=== PATIENT | female | born 1960 | race Caucasian/White ===

== ENCOUNTER → 2016-03-31 | Outpatient (CLI) | payer MEDICAID ==
--- NOTE | 2016-03-31 23:58 | MR ---
EXAMINATION TYPE: MR foot RT wo con DATE OF EXAM: 03/31/2016 7:41 PM COMPARISON: NONE HISTORY: Pain in right foot Standard multiplanar, multisequence MRI departmental protocol Multiplanar, multisequence images of the right foot were acquired. Diffusion weighted imaging was per formed. FINDINGS: There is some hypertrophic spurring at the first metatarsal head. There is metal artifact. There is spurring at the base of the first proximal phalanx. There is narrowing of the first MP joint space. I see no fracture. The Achilles tendon is intact. Plantar fascia is intact. The medial and la teral flexor tendons of the ankle are intact. There is minimal edema in the posterior malleolus on th e T2 images. There is a small ankle joint effusion. There is mild spurring of the posterior malleolus . There is no evidence of a fracture. The collateral ligaments of the ankle joint appear intact. IMPRESSION: There is metal artifact apparently from surgery on the first metatarsal head. 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 No acute fracture seen. Mild osteoarthritis in the ankle joint with small joint effusion.
== END | disposition home or self-care (01) ==
LOC: RADMRIMAIN 19:02
PROVIDERS: ATTEND Orthopaedic Surgery
DX: M19.071 Primary osteoarthritis, right ankle and foot (principal)

== ENCOUNTER → 2016-05-03 | Outpatient (CLI) | payer MEDICAID ==
--- NOTE | 2016-05-04 09:39 | MM ---
Reason for exam: clinical finding. Last mammogram was performed 3 years and 3 months ago. History: Patient is postmenopausal. Benign excisional biopsy of the left breast, 2011. Indicated problem(s): lump or thickening in the left breast. Physical Findings: Nurse Summary: 1 x 1cm nodule in the left breastat 12 o'clock/3 o'clock, 3 o'clock pinpoint palpable (nurse ts). MG 3D Diag Mammo W/Cad CONNOR Bilateral CC and MLO view(s) were taken. Prior study comparison: January 24, 2013, mammogram. January 16, 2012, mammogram. There are scattered fibroglandular densities. Left 12 o'clock and 3 o'clock palpable markers. Under the 12 o'clock marker there is a new small area of early oil cyst formation. Otherwise, no significant change. These results were verbally communicated with the patient and result sheet given to the patient on 05/03/16. ASSESSMENT: Incomplete: need additional imaging evaluation, BI-RAD 0 RECOMMENDATION: Ultrasound of the left breast. (targeted to 12 o'clock and 3 o'clock palpable sites)
--- NOTE | 2016-05-04 09:45 | USB ---
Reason for exam: additional evaluation requested from abnormal screening. History: Patient is postmenopausal. Benign excisional biopsy of the left breast, 2011. US Breast Limited LT Left breast ultrasound demonstrates a 4 x 4 x 3mm oval, hyperechoic, cystic lesion at palpable at 12 o'clock, total measurement of 9mm, likely correlated with the early oil cyst formation on mammogram, a 5 x 3 x 6mm oval, cystic lesion at 1 o'clock, benign and a 14 x 15mm irregular, hypoechoic lesion at 3 o'clock at scar/palpable. Scar tissue is suspected, but given the irregular features 3 month follow up is recommended. These results were verbally communicated with the patient and result sheet given to the patient on 05/03/16. ASSESSMENT: Probably benign, BI-RAD 3 RECOMMENDATION: Ultrasound of the left breast in 3 months.
== END | disposition home or self-care (01) ==
LOC: RADMAMWWP 14:01
PROVIDERS: ATTEND Family Medicine
DX: N63 Unspecified lump in breast (principal); R92.8 Other abnormal and inconclusive findings on diagnostic imaging of breast
CPT/HCPCS: 76642; G0204; G0279

== ENCOUNTER → 2016-08-09 | Outpatient (CLI) | payer MEDICAID, BC ==
--- NOTE | 2016-08-10 08:49 | USB ---
Reason for exam: follow-up at short interval from prior study. History: Patient is postmenopausal. Benign excisional biopsy of the left breast, 2011. Physical Findings: Nurse Summary: 0.5cm nodule in the right breast at 12 o'clock and a 0.5cm nodule in the right breast at 3 o'clock (nurse dw). US Breast LT Left breast ultrasound includes all four quadrants, the retroareolar region and axilla. Finding demonstrates a 7 x 6 x 9mm mixed area at 12 o'clock, a 17 x 8 x 12mm irregular, hypoechoic lesion at 2-3 o'clock with shadow at aspect of scar for which a biopsy is recommended and a 7 x 7 x 2mm oval, cystic lesion at 1 o'clock. These results were verbally communicated with the patient and result sheet given to the patient on 08/09/16. ASSESSMENT: Suspicious, BI-RAD 4 RECOMMENDATION: Ultrasound core biopsy of the left breast. Called Dr. Martinez with mammographic findings and has scheduled an appointment for the patient for 09/19/16 at 4:[address] Cordoba. Biopsy scheduled for 08/16/16 at 12:20. PRELIMINARY REPORT CALLED AND FAXED TO DR. CORDOBA ON 08/10/16 AT 300/TP.
== END | disposition home or self-care (01) ==
LOC: RADUSWWP 14:27
PROVIDERS: ATTEND Obstetrics & Gynecology
DX: R92.8 Other abnormal and inconclusive findings on diagnostic imaging of breast (principal); R92.2 Inconclusive mammogram

== ENCOUNTER → 2016-09-13 | Day surgery (SDC) | payer MEDICAID, BC ==
[2016-09-13 12:36] VITALS: RESP 16; TEMP 99.1; BMI 32.8
[2016-09-13 14:03] VITALS: BP 116/76; PULSE 71
--- NOTE | 2016-09-13 14:24 | USB ---
EXAMINATION TYPE: US biopsy breast VAD LT, Postbiopsy diagnostic mammo LT wo CAD DATE OF EXAM: 09/13/2016 CLINICAL HISTORY: 56-year-old female with palpable abnormality in the left breast referred for ultrasound-guided biopsy. TECHNIQUE: Ultrasound guided core biopsy of the left breast. COMPARISON: 08/09/2016 and 05/03/2016 FINDINGS: The procedure of ultrasound guided core biopsy was explained to the patient. Benefits, alternatives, and risks were discussed. An informed consent was then obtained. The patient was placed in supine positioning for imaging and for the procedure. The overlying skin was prepped and draped in usual sterile fashion. Lidocaine was used as anesthetic into the skin and subcutaneous tissue up to area of concern in the 2-3 o'clock deep left breast. Under ultrasound guidance, a 13-gauge vacuum-assisted Mammotome Elite biopsy gun was used to obtain 6 core samples. Following this, a coil clip was left in lesion. Postprocedure mammogram shows coil clip in place posteriorly at 3:00 but no clear mammographic correlate to the ultrasound lesion. The patient tolerated the procedure well without any immediate complication. The patient was kept in the radiology department for short stay after the procedure and then discharged home in stable condition. IMPRESSION: Successful, uncomplicated ultrasound guided core biopsy of area of concern in the 3:00 left breast, scar tissue versus a suspicious lesion. Full pathology results to follow. Pathology Results: Benign BREAST, LEFT, ULTRASOUND GUIDED CORE BIOPSY: FIBROCYSTIC CHANGE (STROMAL FIBROSIS, CYST FORMATION, APOCRINE METAPLASIA. DUCT ECTASIA AND DUCT HYPERPLASIA ). Recommendation Follow up ultrasound of the left breast in 6 months. FANTASMA
== END ==
LOC: RADUSWWP 12:15
PROVIDERS: ATTEND Surgery
DX: N60.32 Fibrosclerosis of left breast (principal); R92.8 Other abnormal and inconclusive findings on diagnostic imaging of breast; N60.82 Other benign mammary dysplasias of left breast; N60.42 Mammary duct ectasia of left breast; N60.92 Unspecified benign mammary dysplasia of left breast; N64.89 Other specified disorders of breast; Z88.0 Allergy status to penicillin
CPT/HCPCS: 88305; 19083; G0206; A4648; J2001

== ENCOUNTER → 2017-06-27 | Outpatient (CLI) | payer MEDICAID ==
[2017-06-27 16:23] LABS: Rheumatoid Factor 5 IU/mL (0-15)
[2017-06-27 17:13] LABS: Shrimp IgE <0.10 kU/L
[2017-06-28 12:16] LABS: ANA Pattern Speckled
[2017-06-28 13:41] LABS: Lettuce IgE Class CLASS 0
[2017-06-28 13:44] LABS: Salmon IgE <0.35 kU/L (<0.35); Salmon IgE Class CLASS 0
[2017-06-28 13:46] LABS: Apple IgE Class CLASS 0; Onion IgE <0.35 kU/L (<0.35); Onion IgE Class CLASS 0; Yeast Bakers/Brew IgE <0.35 kU/L (<0.35)
[2017-06-28 13:47] LABS: Celery IgE <0.35 kU/L (<0.35); Celery IgE Class CLASS 0; Chicken IgE Class CLASS 0
[2017-06-28 13:48] LABS: Chocolate IgE Class CLASS 0; Cow's Milk IgE Class CLASS 0; Egg White IgE <0.35 kU/L (<0.35); Latex IgE Class CLASS 0; Peanut IgE <0.35 kU/L (<0.35); Potato IgE <0.35 kU/L (<0.35); Potato IgE Class CLASS 0; Soybean IgE <0.35 kU/L (<0.35)
[2017-06-28 13:49] LABS: Avocado Class CLASS 0; Banana IgE Class CLASS 0; Hazelnut IgE <0.35 kU/L (<0.35); Hazelnut IgE Class CLASS 0; Kiwi IgE <0.35 kU/L (<0.35); Tea IgE <0.35 kU/L (<0.35)
== END | disposition home or self-care (01) ==
LOC: LABWHC1 09:20
PROVIDERS: ATTEND Otolaryngology
DX: R53.83 Other fatigue (principal); K14.0 Glossitis; J30.89 Other allergic rhinitis
CPT/HCPCS: 36415; 82607; 84207; 85652; 86003; 86038; 86039; 86431

== ENCOUNTER → 2017-10-01 | Outpatient (CLI) | payer MEDICAID ==
--- NOTE | 2017-10-03 13:08 | MM ---
Reason for exam: additional evaluation requested from prior study. Last mammogram was performed 1 year and 1 month ago. History: Patient is postmenopausal. Benign US biopsy breast VAD LT of the left breast, September 13, 2016. Benign excisional biopsy of the left breast, 2011. Physical Findings: Nurse did not find any significant physical abnormalities on exam. MG 3D Diag Mammo W/Cad CONNOR Bilateral CC and MLO view(s) were taken. Prior study comparison: September 13, 2016, left breast MG diagnostic mammo LT wo CAD. May 03, 2016, bilateral MG 3d diag mammo w/cad CONNOR. There are scattered fibroglandular densities. Previous mammotome biopsy in the left breast. There is chronic nodularity bilaterally. There is no discrete abnormality. These results were verbally communicated with the patient and result sheet given to the patient on 10/01/17. ASSESSMENT: Benign, BI-RAD 2 RECOMMENDATION: Routine screening mammogram of both breasts in 1 year.
--- NOTE | 2017-10-03 13:09 | USB ---
Reason for exam: additional evaluation requested from prior study. History: Patient is postmenopausal. Benign US biopsy breast VAD LT of the left breast, September 13, 2016. Benign excisional biopsy of the left breast, 2011. US Breast LT Left complete breast ultrasound includes all four quadrants, the retroareolar region and axilla. Finding demonstrates no cystic or solid lesion seen. These results were verbally communicated with the patient and result sheet given to the patient on 10/01/17. ASSESSMENT: Negative, BI-RAD 1 RECOMMENDATION: Routine screening mammogram of both breasts in 1 year.
== END | disposition home or self-care (01) ==
LOC: RADMAMWWP 09:31
PROVIDERS: ATTEND Obstetrics & Gynecology
DX: R92.8 Other abnormal and inconclusive findings on diagnostic imaging of breast (principal)
CPT/HCPCS: 77062; 77066

== ENCOUNTER → 2018-04-05 | Outpatient (CLI) | payer MEDICAID, BC ==
--- NOTE | 2018-04-05 14:59 | XR ---
EXAMINATION TYPE: XR chest 2V DATE OF EXAM: 04/05/2018 COMPARISON: NONE HISTORY: Chest discomfort. TECHNIQUE: Frontal and lateral views of the chest are obtained. FINDINGS: There is no focal air space opacity, pleural effusion, or pneumothorax seen. The cardiac silhouette size is within normal limits. The osseous structures are intact. IMPRESSION: No acute cardiopulmonary process.
--- NOTE | 2018-04-06 08:42 | ECHOF ---
Referral Reason:R07.9, R94.31 MEASUREMENTS -------- HEIGHT: 167.6 cm WEIGHT: 86.2 kg BP: IVSd: 1.1 cm (0.6 - 1.1) LVIDd: 3.8 cm (3.9 - 5.3) LVPWd: 1.2 cm (0.6 - 1.1) IVSs: 1.4 cm LVIDs: 3.1 cm LVPWs: 1.3 cm RVIDd: 2.8 cm (< 3.3) LAESV Index (A-L): 17.03 ml/m Ao Diam: 3.0 cm (2.0 - 3.7) LA Diam: 2.9 cm (2.7 - 3.8) AV Cusp: 1.8 cm (1.5 - 2.6) EPSS: 0.5 cm MV E Laz: 0.72 m/s MV DecT: 275 ms MV A Laz: 0.76 m/s MV E/A Ratio: 0.95 RAP: 5.00 mmHg RVSP: 30.00 mmHg MV EF SLOPE: 81.33 mm/s (70 - 150) MV EXCURSION: 13.54 mm (> 18.000) FINDINGS -------- Sinus rhythm. This was a technically adequate study. The left ventricular size is normal. There is mild concentric left ventricular hypertrophy. Overa ll left ventricular systolic function is normal with, an EF between 55 - 60 %. The right ventricle is normal in size and function. Normal LA size by volume 22+/-6 ml/m2. The right atrium is normal in size. The aortic valve is trileaflet, and appears structurally normal. No aortic stenosis or regurgitation. The mitral valve leaflets are mildly thickened. There is trace to mild mitral regurgitation. Mild tricuspid regurgitation present. Right ventricular systolic pressure is normal at < 35 mmHg. There is no evidence of pulmonary hypertension. The pulmonic valve was not well visualized. The aortic root size is normal. Normal inferior vena cava with normal inspiratory collapse consistent with estimated right atrial pre ssure of 5 mmHg. There is no pericardial effusion. CONCLUSIONS -------- 1. Sinus rhythm. 2. This was a technically adequate study. 3. The left ventricular size is normal. 4. There is mild concentric left ventricular hypertrophy. 5. Overall left ventricular systolic function is normal with, an EF between 55 - 60 %. 6. Normal LA size by volume 22+/-6 ml/m2. 7. The aortic valve is trileaflet, and appears structurally normal. No aortic stenosis or regurgitati on. 8. The mitral valve leaflets are mildly thickened. 9. There is trace to mild mitral regurgitation. 10. Mild tricuspid regurgitation present. 11. Right ventricular systolic pressure is normal at < 35 mmHg. 12. There is no evidence of pulmonary hypertension. 13. The pulmonic valve was not well visualized. 14. The aortic root size is normal. 15. There is no pericardial effusion. CHANNEL REBUILDER: Jones Neil RDCS
--- NOTE | 2018-04-06 08:52 | XR ---
EXAMINATION TYPE: XR hand complete RT DATE OF EXAM: 04/05/2018 CLINICAL HISTORY: Chronic right hand pain. TECHNIQUE: Frontal, lateral and oblique images of the right hand are obtained. COMPARISON: None. FINDINGS: There is no acute fracture/dislocation evident in the right hand. Mild to moderate degener ative change throughout the phalanges with narrowing of PIP and the DIP joints is present. There is r elative sparing of the MCP joints. No significant spurring is seen. Mild diffuse soft tissue swelling throughout the phalanges is noted. IMPRESSION: As above.
== END | disposition home or self-care (01) ==
LOC: RADECHMAIN 13:28
PROVIDERS: ATTEND Family Medicine
DX: I08.1 Rheumatic disorders of both mitral and tricuspid valves (principal); R07.9 Chest pain, unspecified; R76.8 Other specified abnormal immunological findings in serum; I20.9 Angina pectoris, unspecified; R22.0 Localized swelling, mass and lump, head; M25.841 Other specified joint disorders, right hand
CPT/HCPCS: 71046; 93306

== ENCOUNTER → 2018-04-05 | Outpatient (CLI) | payer MEDICAID, BC ==
[2018-04-05 16:20] LABS: Appearance,Urine Cloudy (Clear); Bilirubin,Urine Negative (Negative); Blood,Urine Negative (Negative); Color,Urine Light Yellow; Glucose,Urine (UA) Negative (Negative); Ketones,Urine Negative (Negative); Leukocyte Esterase,Urine Large (Negative); Mucus,Urine Rare /hpf; Nitrite,Urine Negative (Negative); Protein,Urine Negative (Negative); RBC,Urine 8 /hpf (0-5); Squamous Epithelial Cell,Urine 7 /hpf (0-4); Urobilinogen,Urine <2.0 mg/dL (<2.0); WBC,Urine 95 /hpf (0-5)
[2018-04-05 22:56] LABS: Rheumatoid Factor 9 IU/mL (0-15)
[2018-04-05 23:26] LABS: Cardiolipin Ab IgG Interp NEGATIVE (NEGATIVE); Cyclic Citrullinated Pep IgG NEGATIVE (NEGATIVE); Hepatitis C IgG Antibody Non-Reactive (Non-Reactive)
[2018-04-09 12:16] LABS: Histone Antibody 1.2 UNITS (<1.0)
== END | disposition home or self-care (01) ==
LOC: LABWHC1 15:01
PROVIDERS: ATTEND Internal Medicine Rheumatology
DX: M35.00 Sjogren syndrome, unspecified (principal); L56.8 Other specified acute skin changes due to ultraviolet radiation; M19.049 Primary osteoarthritis, unspecified hand; L65.9 Nonscarring hair loss, unspecified; R76.8 Other specified abnormal immunological findings in serum
CPT/HCPCS: 36415; 81001; 83516; 85652; 86140; 86146; 86147; 86160; 86200; 86235; 86431; 86803

== ENCOUNTER → 2019-02-07 | Outpatient (CLI) | payer MEDICAID, BC ==
--- NOTE | 2019-02-07 14:56 | USB ---
Reason for exam: clinical finding. History: Patient is postmenopausal. Benign US biopsy breast VAD LT of the left breast, September 13, 2016. Benign excisional biopsy of the left breast, 2011. US Breast LT Technologist: Angely Goodwin Left complete breast ultrasound includes all four quadrants, the retroareolar region and axilla. Finding demonstrates no cystic or solid lesion seen. No suspicious sonographic finding. These results were verbally communicated with the patient and result sheet given to the patient on 02/07/19. ASSESSMENT: Negative, BI-RAD 1 RECOMMENDATION: Routine screening mammogram of both breasts in 1 year. Manage patient on a clinical basis.
--- NOTE | 2019-02-07 14:56 | MM ---
Reason for exam: clinical finding. Last mammogram was performed 1 year and 4 months ago. History: Patient is postmenopausal. Benign US biopsy breast VAD LT of the left breast, September 13, 2016. Benign excisional biopsy of the left breast, 2011. Indicated problem(s): lump or thickening in the left breast. Physical Findings: Nurse did not find any significant physical abnormalities on exam. MG 3D Diag Mammo W/Cad CONNOR Bilateral CC and MLO view(s) were taken. Prior study comparison: October 01, 2017, bilateral MG 3d diag mammo w/cad CONNOR. September 13, 2016, left breast MG diagnostic mammo LT wo CAD. There are scattered fibroglandular densities. No suspicious abnormality. Left biopsy marker noted. These results were verbally communicated with the patient and result sheet given to the patient on 02/07/19. ASSESSMENT: Incomplete: need additional imaging evaluation, BI-RAD 0 RECOMMENDATION: Ultrasound of the left breast. (palpable per patient)
== END | disposition home or self-care (01) ==
LOC: RADMAMWWP 13:23
PROVIDERS: ATTEND Obstetrics & Gynecology
DX: N63.10 Unspecified lump in the right breast, unspecified quadrant (principal); N63.20 Unspecified lump in the left breast, unspecified quadrant; R92.8 Other abnormal and inconclusive findings on diagnostic imaging of breast
CPT/HCPCS: 77062; 77066

== ENCOUNTER → 2019-02-14 | Outpatient (CLI) | payer MEDICAID, BC ==
--- NOTE | 2019-02-14 15:18 | XR ---
EXAMINATION TYPE: XR Hip Bilateral and AP pelvis DATE OF EXAM: 02/14/2019 COMPARISON: None HISTORY: Left hip pain TECHNIQUE: Bilateral shoulder examined in 2 projections each. FINDINGS: Bilateral hips articulate with the acetabulum. Joint spaces are preserved. No acute fractur es or dislocations are evident. Symphysis pubis and sacroiliac joints appear normal. IMPRESSION: 1. Normal bilateral hips.
== END | disposition home or self-care (01) ==
LOC: RADXRMAIN 12:53
PROVIDERS: ATTEND Family Medicine
DX: M25.559 Pain in unspecified hip (principal); M54.5 Low back pain
CPT/HCPCS: 73521

== ENCOUNTER → 2019-02-17 | Outpatient (CLI) | payer MEDICAID, BC ==
--- NOTE | 2019-02-17 08:44 | CT ---
EXAMINATION TYPE: CT abdomen pelvis wo con DATE OF EXAM: 02/17/2019 COMPARISON: None HISTORY: LLQ pain, diarrhea CT DLP: 1109 mGycm Examination of the solid and hollow viscera is limited given the lack of contrast. FINDINGS: LUNG BASES: No evidence for nodule. No evidence for infiltrate. LIVER/GB: The gallbladder is unremarkable tiny subcentimeter hepatic cysts are noted. PANCREAS: No pancreatic mass identified. No inflammatory process seen. SPLEEN: No evidence for splenomegaly. No intrasplenic lesions seen. ADRENALS: No adrenal nodules identified. No evidence for thickening. KIDNEYS: No evidence for renal mass. No nephrolithiasis. No hydronephrosis. BOWEL: Appendix has a normal appearance. No evidence of bowel obstruction. No inflammatory process. Lymph nodes: No evidence for adenopathy greater than 1 cm. Abdominal aorta: Atheromatous changes seen. No evidence for aneurysm. Genital organs: No significant abnormality. Other: No significant abnormality. IMPRESSION: NO SIGNIFICANT ABNORMALITY APPRECIATED. SMALL HEPATIC CYSTS NOTED.
== END | disposition home or self-care (01) ==
LOC: RADCTMAIN 06:10
PROVIDERS: ATTEND Family Medicine
DX: K76.89 Other specified diseases of liver (principal)
CPT/HCPCS: 74176

== ENCOUNTER → 2019-03-14 | Outpatient (CLI) | payer MEDICAID, BC ==
--- NOTE | 2019-03-14 14:20 | XR ---
EXAMINATION TYPE: XR lumbosacral spine min 4V DATE OF EXAM: 03/14/2019 COMPARISON: None HISTORY: Low back pain TECHNIQUE: Five-view cervical spine FINDINGS: Some facet degenerative changes present L4-5 L5-S1 bilaterally. Vertebral body heights are preserved. Disc heights are preserved. Alignment is normal. There 5 lumbar-type vertebral bodies. The pedicles are intact. IMPRESSION: 1. Facet degenerative change L4-5 L5-S1.
--- NOTE | 2019-03-14 16:05 | XR ---
EXAMINATION TYPE: XR pelvis AP view DATE OF EXAM: 03/14/2019 COMPARISON: 02/14/2019 HISTORY: Low back pain TECHNIQUE: AP pelvis FINDINGS: Femoral heads articulate with the acetabulum. Sacroiliac joints and symphysis pubis are nor mal. No acute fractures or dislocations are evident. IMPRESSION: 1. Normal AP pelvis
--- NOTE | 2019-03-14 16:06 | XR ---
EXAMINATION TYPE: XR cervical spine comp DATE OF EXAM: 03/14/2019 COMPARISON: None HISTORY: Pain cervicalgia TECHNIQUE: Five-view cervical spine FINDINGS: There is some left foraminal narrowing present C4-5 C5-6. Mild right foraminal narrowing at C4-5 and C5-6 is present. There is loss of disc height C5-6. Remaining disc heights are preserved. V ertebral body heights are preserved. The prevertebral space is normal. Posterior spinal lamellar line is intact. IMPRESSION: 1. Degenerative disc changes C5-6. 2. Foraminal narrowing C4-5 C5-6, greater on the left.
== END | disposition home or self-care (01) ==
LOC: RADXRMAIN 13:49
PROVIDERS: ATTEND Internal Medicine Rheumatology
DX: M47.817 Spondylosis without myelopathy or radiculopathy, lumbosacral region (principal); M47.816 Spondylosis without myelopathy or radiculopathy, lumbar region; M48.02 Spinal stenosis, cervical region; M47.812 Spondylosis without myelopathy or radiculopathy, cervical region; M54.5 Low back pain
CPT/HCPCS: 72050; 72110; 72170

== ENCOUNTER → 2019-03-27 | Outpatient (CLI) | payer MEDICAID, BC ==
[2019-03-27 14:56] LABS: HCT 42.7 % (34.0-46.0); HGB 14.2 gm/dL (11.4-16.0); MCH 28.9 pg (25.0-35.0); MCHC 33.3 g/dL (31.0-37.0); MCV 86.9 fL (80.0-100.0); Mean Platelet Volume 7.6; Platelet Count 176 k/uL (150-450); RBC 4.92 m/uL (3.80-5.40); RDW 12.9 % (11.5-15.5)
[2019-03-27 18:51] LABS: African American GFR (CKD) 94.9 (60.0-200.0); Albumin 4.3 g/dL (3.80-4.90); Albumin/Globulin Ratio 2.15 (1.60-3.17); Anion Gap 8.1 mmol/L (4.00-12.00); BUN/Creat Ratio 13.75 Ratio (12.00-20.00); Carbon Dioxide 29.9 mmol/L (21.6-31.8); Non-African American GFR(CKD) 81.8 (60.0-200.0); Potassium 3.9 mmol/L (3.5-5.5); Total Bilirubin 1.5 mg/dL (0.2-1.2); Total Protein 6.3 g/dL (6.2-8.2)
[2019-03-27 18:59] LABS: Follicle Stimulating Hormone 63.3 mIU/mL; T4, Free (Free Thyroxine) 1.2 ng/dL (0.80-1.80)
[2019-03-27 19:08] LABS: Estradiol 13.2 pg/mL
[2019-03-27 19:09] LABS: Progesterone <0.2 ng/mL; Thyroid Peroxidase Antibodies <28.0 U/mL (0.0-60.0)
== END | disposition home or self-care (01) ==
LOC: LABWHC1 11:43
PROVIDERS: ATTEND Obstetrics & Gynecology
DX: F41.8 Other specified anxiety disorders (principal); L65.9 Nonscarring hair loss, unspecified; N95.1 Menopausal and female climacteric states; R41.3 Other amnesia; N95.9 Unspecified menopausal and perimenopausal disorder; E55.9 Vitamin D deficiency, unspecified
CPT/HCPCS: 36415; 80053; 82306; 82607; 82670; 83001; 84144; 84403; 84439; 84443; 84481; 85027; 86376

== ENCOUNTER → 2020-05-26 | Outpatient (CLI) | payer BC ==
--- NOTE | 2020-05-26 13:21 | MM ---
Reason for exam: screening (asymptomatic). Last mammogram was performed 1 year and 4 months ago. History: Patient is postmenopausal. Benign US biopsy breast VAD LT of the left breast, September 13, 2016. Benign excisional biopsy of the left breast, 2011. Physical Findings: A clinical breast exam by your physician is recommended on an annual basis and results should be correlated with mammographic findings. MG 3D Screening Mammo W/Cad Bilateral CC and MLO view(s) were taken. Prior study comparison: February 07, 2019, bilateral MG 3d diag mammo w/cad CONNOR. October 01, 2017, bilateral MG 3d diag mammo w/cad CONNOR. There are scattered fibroglandular densities. There is no discrete abnormality. No significant changes when compared with prior studies. ASSESSMENT: Negative, BI-RAD 1 RECOMMENDATION: Routine screening mammogram of both breasts in 1 year.
== END | disposition home or self-care (01) ==
LOC: RADMAMWWP 08:29
PROVIDERS: ATTEND Obstetrics & Gynecology
DX: Z12.31 Encounter for screening mammogram for malignant neoplasm of breast (principal)
CPT/HCPCS: 77063; 77067

== ENCOUNTER → 2020-06-30 | Outpatient (CLI) | payer BC ==
--- NOTE | 2020-06-30 08:58 | CT ---
EXAMINATION TYPE: CT iac wo con DATE OF EXAM: 06/30/2020 COMPARISON: NONE HISTORY: Pressure and pain and otorrhea x6 months. Bilateral symptoms. CT DLP: 142.7 mGycm. Automated Exposure Control for Dose Reduction was Utilized. TECHNIQUE: CT scan of internal auditory canal is performed without contrast, thin cut axial images ar e obtained, coronal reformatted images are also reviewed. FINDINGS: The external auditory canals are patent bilaterally. Mastoid air cells show no evidence of abnormal opacification bilaterally. The middle ear ossicles are symmetric and unremarkable. There is no evidence of suspicious surroundi ng soft tissue density to suggest cholesteatoma. The scutum is preserved bilaterally. The cochlea and the semicircular canals are symmetric. . The right superior semicircular canal may la ck bony overgrowth on short segment coronal image 103. Similar finding noted on the left coronal imag es 100 and 101. The vestibular aqueduct and internal carotid canal appear symmetric and within normal limits. Temporomandibular joints are maintained bilaterally. Visualized paranasal sinuses are grossly clear. Visualized portion brain parenchyma is felt within normal limits. IMPRESSION: Cannot exclude bilateral superior canal dehiscent syndrome otherwise unremarkable study.
== END | disposition home or self-care (01) ==
LOC: RADCTMAIN 08:03
PROVIDERS: ATTEND Otolaryngology
DX: H92.10 Otorrhea, unspecified ear (principal); H92.03 Otalgia, bilateral; Z88.0 Allergy status to penicillin
CPT/HCPCS: 70480